=== PATIENT | female | born 1995 | race Caucasian/White ===

== ENCOUNTER → 2022-02-27 | Outpatient (CLI) | payer SELFPAY ==
[~2022-02-27] MED LIST: AMOCLA500 PO; HYDACE5 PO; RXHYDACE PO
== END | disposition home or self-care (01) ==
LOC: LAB SHORT 16:25 → LAB 16:25
PROVIDERS: Family Medicine
DX: Z01.419 Encounter for gynecological examination (general) (routine) without abnormal findings (principal)
CPT/HCPCS: G0123